=== PATIENT | female | born 1965 | race Caucasian/White ===

== ENCOUNTER 2017-11-06 10:58 | Emergency (ER) | payer SELFPAY ==
[~2017-11-06] VITALS: Ht 162.6 cm; Wt 97.4 kg
[2017-11-06] MEDS ORDERED: ATENOLOL25 MG PO (11:23)
[2017-11-06] MEDS ORDERED: METFORMIN500 MG PO (11:25)
[2017-11-06] MEDS ORDERED: AMLODIPINE5 MG PO (11:26)
[2017-11-06] MEDS ORDERED: LISINOPRIL10 MG PO (11:27)
[2017-11-06] MEDS ORDERED: CARVEDILOL3.125 MG PO (11:28)
[2017-11-06] MEDS ORDERED: MELOXICAM7.5 MG PO (11:29)
[2017-11-06 13:22] VITALS: BP 146/81
== END 2017-11-06 13:22 | disposition home or self-care (01) | DRG 556 ==
LOC: ED 10:58
DX: M25.572 Pain in left ankle and joints of left foot (principal); E11.9 Type 2 diabetes mellitus without complications; I10 Essential (primary) hypertension; F17.210 Nicotine dependence, cigarettes, uncomplicated

== ENCOUNTER 2018-04-09 07:47 | Emergency (ER) | payer OTHER ==
[~2018-04-09] VITALS: Ht 162.6 cm; Wt 94.1 kg
[~2018-04-09 07:47] MED LIST: AMLODIPINE5 MG PO; ATENOLOL25 MG PO; CARVEDILOL3.125 MG PO; LISINOPRIL10 MG PO; MELOXICAM7.5 MG PO; METFORMIN500 MG PO
[2018-04-09] MEDS ORDERED: ALLERGY NA50 MCG/ACT NAB (08:19)
[2018-04-09] MEDS ORDERED: NEO/POLY/HC AU (08:21)
[2018-04-09] MEDS ORDERED: AMOXICILLIN500 M2 PO (08:22)
[2018-04-09] MEDS ORDERED: GABAPENTIN400 MG PO (08:23)
[2018-04-09] MEDS ORDERED: METFORMIN500 MG PO (08:23)
[2018-04-09] MEDS ORDERED: MELOXICAM15 MG PO (08:24)
[2018-04-09] MEDS ORDERED: LISINOPRIL20 MG PO (08:24)
[2018-04-09] MEDS ORDERED: CHLORTHALID25 MG PO (08:26)
[2018-04-09] MEDS ORDERED: CARVEDILOL25 MG PO (08:26)
[2018-04-09] MEDS ORDERED: CYMBALTA30 MG PO (08:27)
[2018-04-09] MEDS ORDERED: VITAMIN D32000 UNIT PO (08:28)
[2018-04-09] MEDS ORDERED: B COMPLEX PLUS PO (08:28)
[2018-04-09] MEDS ORDERED: VOLTAREN1%GEL TOP (10:46)
[2018-04-09 10:47] VITALS: BP 189/104
== END 2018-04-09 10:58 | disposition home or self-care (01) | DRG 556 ==
LOC: ED 07:47
DX: M79.661 Pain in right lower leg (principal); S86.911A Strain of unspecified muscle(s) and tendon(s) at lower leg level, right leg, initial encounter; R22.41 Localized swelling, mass and lump, right lower limb

== ENCOUNTER 2024-02-10 09:51 | Emergency (ER) | payer MEDICARE ==
[2024-02-10] VITALS (12 sets, daily range): BP systolic 130–158; BP diastolic 63–85
[~2024-02-10] VITALS: Ht 162.6 cm; Wt 75.0 kg
[~2024-02-10 09:51] MED LIST changes: +ALBUTEROL108 MCG/AC; +ALLERGY NA50 MCG/ACT NAB; +AMLODIPINE BESY10 MG PO; +AMOXICILLIN500 M2 PO; +B COMPLEX PLUS PO; +CARVEDILOL25 MG PO; +CHLORTHALID25 MG PO; +CYCLOBENZAPRINE10 MG PO; +CYMBALTA30 MG PO; +GABAPENTIN400 MG PO; +LISINOPRIL20 MG PO; +LOSARTAN POTAS100 MG PO; +MECLIZINE HYDRO25 M1; +MELOXICAM15 MG PO; +METFORMIN HCL1000 MG PO; +NEO/POLY/HC AU; +PRAVASTATIN SOD20 MG PO; +PRAVASTATIN20 MG PO; +SERTRALINE50 MG PO; +TRAZODONE100 MG PO; +VITAMIN D32000 UNIT PO; +VOLTAREN1%GEL TOP; +ZOLOFT50 MG PO
[2024-02-10] MEDS ORDERED: KETOROLAC TROMETHAMINE 30 MG/ML SDV IM ONE (10:55)
[2024-02-10] MEDS ORDERED: TRAMADOL HYDROC50 M1 PO (13:06)
== END 2024-02-10 13:19 | disposition home or self-care (01) ==
LOC: ED 09:51
DX: M25.561 Pain in right knee (principal); Z72.0 Tobacco use